=== PATIENT | female | born 1990 | race Caucasian/White ===

== ENCOUNTER 2021-05-12 04:52 | Emergency (ER) | payer OTHER ==
[~2021-05-12] VITALS: Ht 172.7 cm; Wt 113.0 kg
[2021-05-12 06:11] LABS: HCG SERUM/URINE (NEG/POS) NEGATIVE (NEGATIVE)
[2021-05-12 06:15] LABS: URINE BILIRUBIN - DIPSTICK NEGATIVE (NEGATIVE); URINE BLOOD DIPSTICK NEGATIVE (NEGATIVE); URINE COLOR YELLOW; URINE GLUCOSE - DIPSTICK NEGATIVE (NEGATIVE); URINE KETONE NEGATIVE (NEGATIVE); URINE LEUK ESTERASE NEGATIVE (NEGATIVE); URINE PROTEIN - DIPSTICK NEGATIVE (NEG-TRACE); URINE SPECIFIC GRAVITY 1.025
[2021-05-12 06:16] LABS: URINE NITRITE - DIPSTICK NEGATIVE (Negative)
[2021-05-12] MEDS ORDERED: TESSALON PERLE100 MG PO (06:48)
[2021-05-12] MEDS ORDERED: ZPAK PO (06:48)
[2021-05-12 07:51] LABS: HEMATOCRIT 35.8 % (37.0-47.0); HEMOGLOBIN 11.7 g/dl (12.0-16.0); IMMATURE GRANULOCYTES 0.3 % (0.0-5.0); MEAN CELL VOLUME 86.5 fL CALC (80.0-100.0); MEAN CORPUSCULAR HGB 28.3 pG CALC (26.0-32.0); MEAN CORPUSCULAR HGB CONC 32.7 g/dL CAL (32.0-36.0); NEUT# 2.45 thou/uL (2.00-7.15); RED BLOOD COUNT 4.14 mill/uL (4.20-5.60); RED CELL DISTRI WIDTH 13.1 % (11.5-15.5)
[2021-05-12 08:10] LABS: ALBUMIN 3.7 g/dL (3.2-5.0); ALKALINE PHOSPHATASE 54 u/l (38-126); ANION GAP 12 (6-22 (CALC)); BILIRUBIN, TOTAL 0.5 mg/dL (0.0-1.4); BUN 9 mg/dL (7-17); BUN/CREATININE RATIO 16 (12-20 (CALC)); CARBON DIOXIDE 26 mmol/l (22-30); CHLORIDE 105 mmol/l (95-108); CREATININE 0.6 mg/dL (0.5-1.0); GFR > 60 ML/MIN (>=60 (CALC)); GFR FOR AFR.AMER. > 60 ML/MIN (>=60 (CALC)); POTASSIUM 3.8 mmol/l (3.5-5.1); SGOT/AST 27 u/l (14-36); SODIUM 139 mmol/l (137-146)
[2021-05-12] MEDS ORDERED: PROAIR HFA108 MCG/AC PO (08:44)
[2021-05-12] MEDS ORDERED: LEVAQUIN750 M1 PO (08:44)
[2021-05-12 09:03] VITALS: BP 130/73
== END 2021-05-12 09:04 | disposition home or self-care (01) | DRG 179 ==
LOC: ED 04:52
PROVIDERS: Family Medicine
DX: U07.1 COVID-19 (principal); J20.8 Acute bronchitis due to other specified organisms; Z88.0 Allergy status to penicillin